=== PATIENT | female | born 1940 | race Caucasian/White ===

== ENCOUNTER 2018-03-27 07:21 | Inpatient (IN) | payer MEDICARE, OTHER ==
[~2018-03-27 07:21] MED LIST: LIDOCAINE 2% (SDV) 5 ML INJ
[2018-03-27 07:41] LABS: ADD MAN DIFF? NO
[2018-03-27 07:43] LABS: WHITE BLOOD COUNT 9.4 10^3/ul (4.8-10.8)
[2018-03-27 07:43] LABS: BASOPHIL # 0.1 10^3/ul (0.0-0.1); BASOPHILS % 0.6 % (0.0-2.0); EOSINOPHILS # 0.1 10^3/ul (0.0-0.5); EOSINOPHILS % 1.2 % (0.0-7.0); HEMOGLOBIN 8.1 g/dl (12.0-16.0); LYMPHOCYTES # 2.7 10^3/ul (0.8-2.9); LYMPHOCYTES % 28.3 % (15.0-51.0); MEAN CORPUSCULAR HEMOGLOBIN 29.3 pg (29.0-33.0); MEAN CORPUSCULAR HGB CONC 32.4 g/dl (32.0-37.0); MEAN CORPUSCULAR VOLUME 90.6 fl (82.0-101.0); MEAN PLATELET VOLUME 8.9 fl (7.4-10.4); MONOCYTE # 0.7 10^3/ul (0.3-0.9); MONOCYTES % 6.9 % (0.0-11.0); NEUTROPHIL # 5.9 10^3/ul (1.6-7.5); NEUTROPHILS % 62.5 % (39.0-77.0); PLATELET COUNT 464 10^3/UL (140-415); RED BLOOD COUNT 2.76 10^6/ul (4.20-5.40); RED CELL DISTRIBUTION WIDTH 13.7 % (11.5-14.5)
[2018-03-27] MEDS: SOD CHLORIDE 0.9% 1,000 ML IV (07:44)
[2018-03-27] MEDS: PANTOPRAZOLE 40 MG INJ IV ×3 (07:44→20:43)
[2018-03-27 08:02] LABS: INR 1.02; PROTIME 13.5 Sec (11.9-14.9); PT RATIO 1.1
[2018-03-27 08:03] LABS: PARTIAL THROMBOPLASTIN TIME 24.5 Sec (23.0-35.0)
[2018-03-27 08:04] LABS: ALANINE AMINOTRANSFERASE 16 IU/L (13-69); ALBUMIN 3.9 g/dl (3.3-4.9); ALBUMIN/GLOBULIN RATIO 1.56; ALKALINE PHOSPHATASE 68 IU/L (42-121); ANION GAP 17 (5-13); ASPARTATE AMINO TRANSFERASE 21 IU/L (15-46); BILIRUBIN,INDIRECT 0.1 mg/dl (0-1.1); BILIRUBIN,TOTAL 0.1 mg/dl (0.2-1.3); BLOOD UREA NITROGEN 61 mg/dl (7-20); CALCIUM 9.3 mg/dl (8.4-10.2); CARBON DIOXIDE 21 mmol/L (21-31); CHLORIDE 104 mmol/L (97-110); CREATININE 0.76 mg/dl (0.44-1.00); GLUCOSE 210 mg/dl (70-220); POTASSIUM 3.5 mmol/L (3.5-5.1); SODIUM 142 mmol/L (135-144); TOTAL PROTEIN 6.4 g/dl (6.1-8.1)
[2018-03-27 08:32] LABS: TROPONIN-I < 0.012 ng/ml (0.000-0.120)
[2018-03-27] MEDS ORDERED: ACETAMINOPHEN 325 MG TAB PO ×2 (09:30→13:30)
[2018-03-27] MEDS ORDERED: ONDANSETRON 4 MG INJ IV ×2 (09:30→13:30)
[2018-03-27] MEDS ORDERED: ZOLPIDEM 5 MG TAB PO (13:30)
[2018-03-27] MEDS ORDERED: GLUCAGON 1 MG INJ IM (14:00)
[2018-03-27] MEDS ORDERED: GLUCOSE GEL 15 GRAM TUBE PO ×2 (14:00)
[2018-03-27] MEDS ORDERED: GLUCOSE GEL 15 GRAM TUBE BUCCAL (14:00)
[2018-03-27] MEDS ORDERED: DEXTROSE 50% 50 ML SYRINGE IV ×2 (14:00)
[2018-03-27] MEDS: DEXTROSE 5%-0.45% NACL 1,000 ML IV (14:27)
[2018-03-27] MEDS: FLUTICASONE/VILANTEROL 100-25 INH (16:19)
[2018-03-27] MEDS ORDERED: PROPOFOL 20 ML (16:42)
[2018-03-27] MEDS: INSULIN ASPART [NOVOLOG] 3 ML PEN SC ×2 (18:05→20:43)
[2018-03-27] MEDS: BISACODYL (EC) 5 MG TAB PO (18:17)
[2018-03-27] MEDS: MAGNESIUM CITRATE 300 ML BTL PO (18:17)
[2018-03-27] MEDS: POLYETHYLENE GLYCOL 3350 119 GM POWDER PO (18:18)
[2018-03-27] MEDS: GABAPENTIN 300 MG CAP PO (20:43)
[2018-03-27] MEDS: ATORVASTATIN 20 MG TAB PO (20:43)
[2018-03-27] MEDS ORDERED: NON-FORMULARY/PATIENT OWN MED (Salmeterol Xinaf/Fluticasone* (Advair*) 1 INH) INH (21:00)
[2018-03-28] MEDS: ACCU-CHEK XX (01:59)
[2018-03-28] MEDS: DEXTROSE 5%-0.45% NACL 1,000 ML IV ×2 (03:30→16:08)
[2018-03-28] MEDS: POLYETHYLENE GLYCOL 3350 119 GM POWDER PO (05:37)
[2018-03-28 06:21] LABS: ADD MAN DIFF? NO
[2018-03-28 06:32] LABS: BASOPHIL # 0.1 10^3/ul (0.0-0.1); BASOPHILS % 0.8 % (0.0-2.0); EOSINOPHILS # 0.3 10^3/ul (0.0-0.5); HEMATOCRIT 21.5 % (37.0-47.0); LYMPHOCYTES # 2.6 10^3/ul (0.8-2.9); LYMPHOCYTES % 41.2 % (15.0-51.0); MEAN CORPUSCULAR HEMOGLOBIN 29.3 pg (29.0-33.0); MEAN CORPUSCULAR HGB CONC 32.6 g/dl (32.0-37.0); MONOCYTE # 0.6 10^3/ul (0.3-0.9); MONOCYTES % 9.7 % (0.0-11.0); NEUTROPHIL # 2.7 10^3/ul (1.6-7.5); PLATELET COUNT 397 10^3/UL (140-415); RED BLOOD COUNT 2.39 10^6/ul (4.20-5.40); RED CELL DISTRIBUTION WIDTH 13.9 % (11.5-14.5)
[2018-03-28 06:32] LABS: WHITE BLOOD COUNT 6.2 10^3/ul (4.8-10.8)
[2018-03-28 06:46] LABS: HEMOGLOBIN A1C 6.3 % (0-5.9)
[2018-03-28 06:57] LABS: ALANINE AMINOTRANSFERASE 11 IU/L (13-69); ALBUMIN 3.5 g/dl (3.3-4.9); ALBUMIN/GLOBULIN RATIO 1.29; ALKALINE PHOSPHATASE 59 IU/L (42-121); ANION GAP 8 (5-13); ASPARTATE AMINO TRANSFERASE 25 IU/L (15-46); BILIRUBIN,INDIRECT 0.2 mg/dl (0-1.1); BILIRUBIN,TOTAL 0.2 mg/dl (0.2-1.3); BLOOD UREA NITROGEN 23 mg/dl (7-20); CALCIUM 8.3 mg/dl (8.4-10.2); CARBON DIOXIDE 28 mmol/L (21-31); CHLORIDE 107 mmol/L (97-110); CHOL/HDL RATIO 2.8 RATIO; CHOLESTEROL 93 mg/dl (100-200); GLUCOSE 153 mg/dl (70-220); HDL CHOLESTEROL 33 mg/dl (33-92); LDL CHOLESTEROL,CALCULATED 35 mg/dl; MAGNESIUM 2.3 mg/dl (1.7-2.5); PHOSPHORUS 3.4 mg/dl (2.5-4.9); POTASSIUM 3.5 mmol/L (3.5-5.1); SODIUM 143 mmol/L (135-144); TOTAL PROTEIN 6.2 g/dl (6.1-8.1); TRIGLYCERIDES 127 mg/dl (0-149)
[2018-03-28] MEDS: AMLODIPINE 5 MG TAB PO (08:05)
[2018-03-28] MEDS: BISACODYL (EC) 5 MG TAB PO (08:05)
[2018-03-28] MEDS: GABAPENTIN 300 MG CAP PO ×3 (08:05→20:29)
[2018-03-28] MEDS: FLUTICASONE/VILANTEROL 100-25 INH (08:06)
[2018-03-28] MEDS: PANTOPRAZOLE 40 MG INJ IV ×2 (08:06→20:29)
[2018-03-28] MEDS: BENAZEPRIL 40 MG TAB PO (08:06)
[2018-03-28] MEDS: INSULIN ASPART [NOVOLOG] 3 ML PEN SC ×4 (08:08→20:29)
[2018-03-28] MEDS ORDERED: AMLODIPINE BENAZEPRIL PO (09:00)
[2018-03-28] MEDS ORDERED: PROPOFOL 40 ML (17:22)
[2018-03-28] MEDS ORDERED: LIDOCAINE 2% (SDV) 5 ML INJ (17:22)
[2018-03-28] MEDS ORDERED: hydrALAzine 20 MG INJ IV (17:30)
[2018-03-28] MEDS ORDERED: LABETALOL HCL 20MG INJ IV (17:30)
[2018-03-28] MEDS ORDERED: EPHEDrine SULFATE 50 MG/5 ML SYG IV (17:30)
[2018-03-28] MEDS ORDERED: ONDANSETRON 4 MG INJ IV (17:30)
[2018-03-28] MEDS ORDERED: PHENYLephrine 10 MG INJ (17:49)
[2018-03-28] MEDS: ATORVASTATIN 20 MG TAB PO (20:29)
[2018-03-28 22:47] LABS: IMMEDIATE SPIN CROSSMATCH 1 2
[2018-03-29] MEDS: ACCU-CHEK XX (02:00)
[2018-03-29] MEDS ORDERED: ACCU-CHEK XX (02:00)
[2018-03-29] MEDS: DEXTROSE 5%-0.45% NACL 1,000 ML IV (02:59)
[2018-03-29 07:14] LABS: ADD MAN DIFF? NO
[2018-03-29 07:17] LABS: WHITE BLOOD COUNT 4.6 10^3/ul (4.8-10.8)
[2018-03-29 07:17] LABS: BASOPHILS % 0.6 % (0.0-2.0); EOSINOPHILS # 0.5 10^3/ul (0.0-0.5); EOSINOPHILS % 9.7 % (0.0-7.0); HEMATOCRIT 29.2 % (37.0-47.0); HEMOGLOBIN 9.5 g/dl (12.0-16.0); LYMPHOCYTES # 1.5 10^3/ul (0.8-2.9); LYMPHOCYTES % 32.6 % (15.0-51.0); MEAN CORPUSCULAR HEMOGLOBIN 29.2 pg (29.0-33.0); MEAN CORPUSCULAR HGB CONC 32.5 g/dl (32.0-37.0); MEAN CORPUSCULAR VOLUME 89.8 fl (82.0-101.0); MEAN PLATELET VOLUME 8.6 fl (7.4-10.4); MONOCYTE # 0.5 10^3/ul (0.3-0.9); MONOCYTES % 11.2 % (0.0-11.0); NEUTROPHIL # 2.1 10^3/ul (1.6-7.5); NEUTROPHILS % 45.9 % (39.0-77.0); PLATELET COUNT 282 10^3/UL (140-415); RED BLOOD COUNT 3.25 10^6/ul (4.20-5.40); RED CELL DISTRIBUTION WIDTH 14.1 % (11.5-14.5)
[2018-03-29 07:52] LABS: ANION GAP 7 (5-13); BLOOD UREA NITROGEN 7 mg/dl (7-20); CALCIUM 7.9 mg/dl (8.4-10.2); CARBON DIOXIDE 25 mmol/L (21-31); CHLORIDE 111 mmol/L (97-110); GLUCOSE 145 mg/dl (70-220); MAGNESIUM 1.7 mg/dl (1.7-2.5); PHOSPHORUS 3.2 mg/dl (2.5-4.9); POTASSIUM 3.3 mmol/L (3.5-5.1); SODIUM 143 mmol/L (135-144)
[2018-03-29] MEDS: INSULIN ASPART [NOVOLOG] 3 ML PEN SC ×2 (08:08→12:10)
[2018-03-29] MEDS: GABAPENTIN 300 MG CAP PO ×2 (08:36→12:17)
[2018-03-29] MEDS: PANTOPRAZOLE 40 MG INJ IV (08:36)
[2018-03-29] MEDS: FLUTICASONE/VILANTEROL 100-25 INH (08:36)
[2018-03-29] MEDS: BENAZEPRIL 40 MG TAB PO (08:38)
[2018-03-29] MEDS: AMLODIPINE 5 MG TAB PO (08:39)
[2018-03-29] MEDS: POTASSIUM CHLORIDE (SR) 10 MEQ TAB PO (12:11)
== END 2018-03-29 15:35 | disposition home or self-care (01) | DRG 378 ==
LOC: E/R 07:21 → PP2 09:30
PROC: 0DB68ZX Excision of Stomach, Via Natural or Artificial Opening Endoscopic, Diagnostic (ICD-10-PCS; principal; 2018-03-27 16:30)
PROC: 0DJD8ZZ Inspection of Lower Intestinal Tract, Via Natural or Artificial Opening Endoscopic (ICD-10-PCS; 2018-03-27 16:30)
PROC: 30233N1 Transfusion of Nonautologous Red Blood Cells into Peripheral Vein, Percutaneous Approach (ICD-10-PCS; 2018-03-27 16:30)
DX: K25.4 Chronic or unspecified gastric ulcer with hemorrhage (principal); D62 Acute posthemorrhagic anemia; T39.395A Adverse effect of other nonsteroidal anti-inflammatory drugs [NSAID], initial encounter; K29.70 Gastritis, unspecified, without bleeding; K64.8 Other hemorrhoids; J44.9 Chronic obstructive pulmonary disease, unspecified; Z79.1 Long term (current) use of non-steroidal anti-inflammatories (NSAID); I10 Essential (primary) hypertension; E11.9 Type 2 diabetes mellitus without complications; E78.5 Hyperlipidemia, unspecified; F03.90 Unspecified dementia, unspecified severity, without behavioral disturbance, psychotic disturbance, mood disturbance, and anxiety; K21.0 Gastro-esophageal reflux disease with esophagitis; Z86.73 Personal history of transient ischemic attack (TIA), and cerebral infarction without residual deficits; Z85.3 Personal history of malignant neoplasm of breast; M17.0 Bilateral primary osteoarthritis of knee
CPT/HCPCS: 36415; 36430; 80048; 80053; 80061; 82962; 83036; 83735; 84100; 84443; 84484; 85025; 85610; 85730; 86850; 86900; 86901; 86920; 88305; 93005; 96374; 99285-25

== ENCOUNTER 2018-07-22 07:36 | Day surgery (SDC) | payer MEDICARE ==
[2018-07-22] MEDS ORDERED: PROPOFOL 20 ML (11:20)
== END 2018-07-22 14:04 | disposition home or self-care (01) ==
LOC: GIL 07:36
DX: K29.00 Acute gastritis without bleeding (principal); K20.8 Other esophagitis; E11.9 Type 2 diabetes mellitus without complications; E78.00 Pure hypercholesterolemia, unspecified; I10 Essential (primary) hypertension; Z79.82 Long term (current) use of aspirin
CPT/HCPCS: 43239; 82962; 88305; 88312

== ENCOUNTER 2018-08-01 15:25 | Emergency (ER) | payer MEDICARE, OTHER | END 2018-08-01 18:44 | disposition home or self-care (01) | LOC: E/R 15:25 | DX: S06.0X0A Concussion without loss of consciousness, initial encounter (principal); E11.9 Type 2 diabetes mellitus without complications; I10 Essential (primary) hypertension; W50.0XXA Accidental hit or strike by another person, initial encounter; Y92.9 Unspecified place or not applicable | CPT/HCPCS: 70450; 72125; 99284-25 ==